=== PATIENT | female | born 1960 | race Caucasian/White ===

== ENCOUNTER 2018-10-28 09:56 | Observation (INO) | payer MEDICARE, OTHER ==
--- NOTE | 2018-10-28 10:26 | CT ---
HEAD CT WITHOUT CONTRAST: History: Stroke alert. Right sided weakness, shaking, and difficulty breathing. Comparison: None. FINDINGS: No parenchymal hemorrhage. No extraaxial hematoma. No midline shift. Basilar cisterns are patent. Brain volume age appropriate. Cortical antonio white matter differentiation is preserved. No evidence of hydrocephalus. White matter hypodensities or chronic small vessel ischemic changes are noted. Calvarium is intact. Adequate aeration of the sinuses and mastoid air cells. IMPRESSION: 1. No acute intracranial process. 2. Chronic small vessel ischemic change in white matter. 3. Results of study discussed with Dr. Christiansen 10-28-18 at 10:05 a.m. POS: [facility]
--- NOTE | 2018-10-28 10:31 | CT ---
CTA Angio Head W WO Con History: [Stroke alert] Comparison: CT brain without contrast same day Findings: CT angiogram of the head and neck performed after the intravenous administration of contras t. 3-D rendering provided. The lung apices demonstrate congestive changes. No apical pneumothorax. Normal cervical spine alignment. Mandibles intact. Vessels: The transverse aorta is unremarkable. The vertebral arteries are codominant. No vertebral st enosis, thrombosis nor aneurysm formation. The right common carotid artery origin is patent. The internal carotid artery is ectatic. No hemodyna mically significant stenosis is present using NASCET criteria. The left common carotid artery is patent. There is large volume calcific plaque of the proximal inter nal carotid artery with approximately 50% stenosis per NASCET criteria. There is a focal ulcerative p laque of the left internal carotid artery at the level of C1 sagittal image 47. The cavernous, petrou s, supraclinoid ICAs are patent. The [place] is patent without stenosis, thrombosis, nor ane urysm formation. Impression: 1. Intact [place] without thrombosis, stenosis, nor aneurysm formation. 2. According to NASCET criteria approximately 50% stenosis proximal left internal carotid artery due to combination of calcific and soft plaque for a length of 1 cm. 3. Small focal atherosclerotic ulcer extracranial left internal carotid artery at the level of C1 sag ittal image 47. Code CR Dr. Christiansen
--- NOTE | 2018-10-28 10:34 | RAD ---
XR Chest 1 View Portable History: [Altered mental status] Comparison: Radiograph 2017 Findings: There is left lower lobe airspace opacity. Right lung peterson appear no pneumothorax. Dense calcifications left carotid bulb. Impression: Left lower lobe opacity concerning for infection with parapneumonic effusion. Follow-up a fter treatment recommended.
[2018-10-28] MEDS ORDERED: Aspirin Chewable 81 MG TAB ONE (10:42)
[2018-10-28 10:46] LABS: #Eosinphils 0.1 thou/uL (0.0-0.7); #Lymphocytes 1.2 thou/uL (1.20-3.40); #Monocytes 0.3 thou/uL (0.11-0.59); #Neutrophils 1.8 thou/uL (1.40-6.50); %Basophils 0.5 % (0.0-1.0); %Monocytes 9.9 % (0.0-10.0); %Neutrophils 52.7 % (42.0-75.0); Hemoglobin 11.2 g/dL (12.0-16.0); Mean Corpuscular HGB CONC 33.6 g/dL (32.0-36.0); Mean Corpuscular Hemoglobin 30.1 pg (27.0-31.0); Mean Corpuscular Volume 89.5 fL (78.0-98.0); Platelet Count 270 thou/uL (130-400); RBC Distribution Width 12.6 % (11.5-14.5); Red Blood Cell (RBC) Count 3.71 mill/uL (4.20-5.40); White Blood Cell (WBC) Count 3.5 thou/uL (4.8-10.8)
[2018-10-28 10:57] LABS: INR-International Normal Ratio 0.9; Prothrombin Time 12.7 SEC (12.0-14.7)
[2018-10-28 10:58] LABS: PTT 25.1 SEC (22.9-36.1)
[2018-10-28 11:08] LABS: Acetaminophen Less than 6.0 mcg/mL (10.0-30.0); Alcohol Less than 10 mg/dL (Less than 10); Salicylate Less than 8.0 mg/dL (15.0-30.0)
[2018-10-28 11:09] LABS: ALT (SGPT) 12 U/L (8-55); AST (SGOT) 12 U/L (5-34); Alkaline Phosphatase 123 U/L (40-150); Anion Gap 11 mmol/L (10-20); BUN (Urea Nitrogen) 12 mg/dL (9.8-20.1); Bilirubin, Total 0.2 mg/dL (0.2-1.2); CK (CPK) 85 U/L (29-168); Calc. Creatinine Clearance 0 mL/min (70-130); Calcium 8.7 mg/dL (7.8-10.44); Carbon Dioxide 33 mmol/L (22-29); Chloride 98 mmol/L (98-107); Estimated GFR-MDRD 68; Globulin 2.3 g/dL (2.4-3.5); Glucose 91 mg/dL (70-105); Potassium 3.2 mmol/L (3.5-5.1); Protein, Total 6.3 g/dL (6.0-8.3); Sodium 139 mmol/L (136-145)
[2018-10-28] MEDS ORDERED: cefTRIAXone\\ROCEPHIN 1 GM VIAL ONE (11:15)
[2018-10-28] MEDS ORDERED: Sodium Chloride 0.9% 100 ML ONE (11:15)
[2018-10-28 11:22] LABS: Bilirubin Negative (Negative); Blood, Urine Negative (Negative); Clarity CLEAR (Clear); Glucose, Urine (Dipstick) Negative (Negative); Leukocyte Negative (Negative); Nitrite Negative (Negative); Protein, Urine (Dipstick) Negative (Neg-Trace); Specific Gravity, Urine 1.037 (1.002-1.036); Urobilinogen 0.2 mg/dL (0.2-1.0); pH, Urine 6.5 (5.0-9.0)
[2018-10-28 11:28] LABS: Medtox Reader # READER 1; Methamphetamine Detected (NotDetected)
[2018-10-28 11:29] LABS: Amphetamine Detected (NotDetected); Barbiturates Screen Not Detected (NotDetected); Benzodiazepine Screen Not Detected (NotDetected); Cocaine Metabolite Screen Not Detected (NotDetected); Medtox Control Line Valid? VALID (VALID); Methadone Not Detected (NotDetected); Opiate Screen Detected (NotDetected); Oxycodone Screen Not Detected (NotDetected); Phencyclidine (PCP) Not Detected (NotDetected); THC/Cannabinoid Screen Not Detected (NotDetected); Tricyclic Screen Detected (NotDetected)
[2018-10-28] MEDS ORDERED: Potassium Chloride 20 MEQ TAB ONE (12:32)
[2018-10-28 13:03] LABS: Actual Bicarbonate (HCO3a) 31.3 mEq/L (22-28); Base Excess (BEa) 5.5 mEq/L (-2.0 to +3.0); CO2 Tension 51.4 mmHg (35.0-45.0); Calcium, Ionized 1.13 mmol/L (1.12-1.30); Carboxyhemoglobin (COHb) 0.8 gm% (0.0-3.0); Hemoglobin (Hb) 12.1 g/dL (12.0-16.0); O2 Tension (PaO2) 72.4 mmHg (> 80.0); Potassium - ABG Lab 3.58 mmol/L (3.70-5.30)
[2018-10-28 13:10] LABS: Puncture Site RRA
[2018-10-28 13:22] LABS: Amphetamine Detected (NotDetected); Benzodiazepine Screen Not Detected (NotDetected); Cocaine Metabolite Screen Not Detected (NotDetected); Medtox Reader # READER 4; Methamphetamine Detected (NotDetected); Opiate Screen Detected (NotDetected); Phencyclidine (PCP) Not Detected (NotDetected); THC/Cannabinoid Screen Not Detected (NotDetected); Tricyclic Screen Detected (NotDetected)
[2018-10-28 13:23] LABS: Barbiturates Screen Not Detected (NotDetected); Medtox Control Line Valid? VALID (VALID); Methadone Not Detected (NotDetected); Oxycodone Screen Not Detected (NotDetected)
[2018-10-28] MEDS ORDERED: Acetaminophen 325 MG TAB PO PRN (14:42)
[2018-10-28] MEDS ORDERED: hydrALAZINE 20 MG/ML VIAL SLOW IVP PRN ×2 (14:42)
[2018-10-28 14:55] LABS: Troponin I Less than 0.010 ng/mL (< 0.028)
[2018-10-28 15:25] LABS: Actual Bicarbonate (HCO3a) 33.2 mEq/L (22-28); Analyzer IN Cardio ER; Base Excess (BEa) 7.9 mEq/L (-2.0 to +3.0); CO2 Tension 49.5 mmHg (35.0-45.0); Calcium, Ionized 1.11 mmol/L (1.12-1.30); Carboxyhemoglobin (COHb) 0.2 gm% (0.0-3.0); Hemoglobin (Hb) 11.9 g/dL (12.0-16.0); O2 Tension (PaO2) 68.2 mmHg (> 80.0); Potassium - ABG Lab 3.62 mmol/L (3.70-5.30); pH, Arterial 7.44 (7.35-7.45)
[2018-10-28 15:28] LABS: ALV-art Gradient 19.655 (0-20); Puncture Site RRA
[2018-10-28] MEDS ORDERED: ISOVUE-370 76%-LOCM 1 ML ONE (16:51)
[2018-10-28 17:19] LABS: Troponin I 0.015 ng/mL (< 0.028)
--- NOTE | 2018-10-28 17:35 | HP ---
PRIMARY CARE PHYSICIAN: Dr. Zamora. CHIEF COMPLAINT: "I could not get up to go to the bathroom." HISTORY OF PRESENT ILLNESS: Ms. Alicia is a pleasant 58-year-old female, who has a history of hypertension and bipolar disorder. First, she said last night, but then she corrected herself and said early this morning, she was trying to get up to go the bathroom, but could not get up. She says her legs were too weak and she was afraid she would fall. Apparently, she says a friend comes over to pick her up and to take her to work and says when I asked her how the friend get in and she says that her doors open and the friend came in and was unable to get her up either and her friend called an ambulance and they arrived and they had to carry her into the ambulance into the hospital. She says during this time, she has had some blurry vision and double vision off and on. She admits that she has been falling off and on. She says that she has been weak in her left leg usually, but this morning she felt generally weak in both legs. When asked if her upper extremities were weak, she says that they were, but no more weak on 1 side or the other. She says that when she was trying to send some texts last night, it looked like gibberish, but she says she did. She does not admit to having any speech problems and she does admit to having some blurred vision and double vision. She was brought to the emergency room for evaluation. There, she had a CT scan of the brain done, which was negative. CT angiogram was done as well, which showed some 50% blockage in the left proximal internal carotid artery and also they did a urine drug screen, which was positive for methamphetamines, barbiturates, opiates, and amphetamines. REVIEW OF SYSTEMS: This was essentially negative except for that mentioned in the history of present illness. PAST MEDICAL HISTORY: Significant for hypertension, bipolar disorder, hypercholesterolemia, she has had previous TIA with right-sided numbness, osteopenia, and osteoarthritis. PAST SURGICAL HISTORY: She had a hysterectomy, arm surgery, the pin was out and had to have this repeat. ALLERGIES: TO DARVON, WHICH SHE SAYS CAUSES HER TO VOMIT BLOOD AND TRAMADOL AND SHE SAYS THIS MAKES HER ITCHY AND SAYS IS A "HALF A MEDICINE." SOCIAL HISTORY: She is . She lives at home with her . She says that she has 10 children. She says that she quit smoking 11 years ago and prior to that smoked a pack and a half a day for 35 years. She says that she was a former alcoholic. She used to drink up to 1 L of vodka a day. She says she quit on May 20, 2018. She says that her son, Josue Mason, is her medical surrogate decision maker. She would like to be a full code, but says she will not accept blood. She says she is a [employer]. FAMILY HISTORY: Significant for heart disease in her father and rheumatoid arthritis. Her mother had, she says 25 TIAs in a row. CURRENT MEDICATIONS: Include; 1. Citalopram 20 mg daily. 2. Losartan 100 mg p.o. daily. 3. Tylenol No. 3 as needed. 4. Melatonin 3 mg daily,. 5. Lyrica 100 mg twice a day. 6. Keflex 500 mg t.i.d. 7. Carbamazepine 200 mg 1 in the morning and 2 in the evening. 8. Nexium 40 mg daily. 9. Tizanidine 4 mg at bedtime. She says she is supposed to be on Norvasc, but she has not had it recently. Also has been out of Lipitor and Keflex. PHYSICAL EXAMINATION: GENERAL: She is a bit drowsy, but arousable. She keeps her eyes closed through most of the exam. She is a bit disheveled in appearance, but she is well-developed. VITAL SIGNS: Her vital signs are blood pressure was elevated at 194/100, heart rate is in the 70s, respiratory rate is 16, and afebrile. HEENT: Pupils are equal, round, and reactive. Extraocular muscles are intact. Her sclerae are anicteric. She did have some lateral some horizontal nystagmus. Throat, there is no erythema. No exudates. NECK: No adenopathy. No bruits. LUNGS: Clear to auscultation. There is no wheezing. No rales. No rhonchi. CARDIOVASCULAR: She had a normal S1 and S2. There is no S3 or S4. No murmurs, clicks, or rubs. ABDOMEN: Obese, it is soft, nontender, and nondistended. Positive for bowel sounds. There is no rebound no guarding no organomegaly. EXTREMITIES: Her extremities she has trace edema. Pedal edema. No joint effusions. NEUROLOGIC: Her cranial nerves 2 through 12 are grossly intact. Her muscle strength is 5/5 in both her upper and lower extremities. She had normal patellar and brachial radialis reflexes. However, it was noted she had some asterixis on exam and again some horizontal nystagmus. SKIN AND INTEGUMENT: She has multiple excoriations on both her upper and lower extremities. LABORATORY DATA: Urine drug screen was positive for opiates as well as tricyclic, methamphetamine, and amphetamine. The white blood cell count was 3.5, hemoglobin 11.2, hematocrit is 33.2, and platelet count is 270. INR 0.9. Sodium 139, potassium 3.2, chloride is 98, CO2 is 33, BUN of 12, creatinine 0.85, glucose is 91. Urinalysis was essentially negative. ASSESSMENT AND PLAN: 1. This is a pleasant 58-year-old female, who presents to the emergency room with generalized weakness and lethargy and trouble getting up. I suspect that this is a metabolic encephalopathy likely due to polysubstance abuse and illicit drug abuse. She did have some asterixis on exam, which would lean more to a global metabolic process than a focal lesion and there was no significant focal deficit on exam. The plan would be to place her in observation. We will repeat the urine screen to assure its validity as the patient denies taking any illicit drugs. We will also check an ABG due to her somnolence. Make sure that she is not hypercapnic as well as an ammonia level given her previous history of alcohol abuse. 2. For transient possible transient ischemic attack, this is less likely. However, we will go ahead and get an MRI just to make sure there is no focal lesion and an echocardiogram to be complete. We will also check a lipid panel as well and treat and manage her blood pressure. She did have an evidence of a focal stenosis in the left internal carotid. However, she says that her weakness was more on the left leg. Therefore, it clinically does not correlate and it being less than 75%. We will hold off on any vascular in her surgical intervention at this time. 3. Hypertension. This is poorly controlled, likely due to noncompliance and we will restart her medications and titrate as needed. Job ID: [id number]
--- NOTE | 2018-10-28 18:29 | MRI ---
MRI OF THE BRAIN WITHOUT CONTRAST: 10/28/18 HISTORY: TIA. FINDINGS: Correlation is made with the CT scan of earlier today. No restricted diffusion is seen. Multiple foci of T2 prolongation in the periventricular white matter are consistent with chronic small vessel ischemic disease. No evidence of infarct, hemorrhage, midli ne shift, or abnormal extra-axial fluid collections is noted. The ventricular size is appropriate and the basilar cisterns patent. The visualized paranasal sinuses and mastoid air cells are well aerated . No tonsillar herniation is seen. IMPRESSION: No evidence of acute intracranial process. POS: [facility]
[2018-10-28 18:37] VITALS: BMI 22.1
[2018-10-28] MEDS: Famotidine 20 MG TAB PO SCH (20:27)
[2018-10-28] MEDS ORDERED: Atorvastatin Calcium 40 MG TAB PO SCH (21:00)
[2018-10-29 05:50] LABS: #Eosinphils 0.1 thou/uL (0.0-0.7); #Lymphocytes 1.4 thou/uL (1.20-3.40); #Monocytes 0.4 thou/uL (0.11-0.59); #Neutrophils 2.2 thou/uL (1.40-6.50); %Basophils 0.8 % (0.0-1.0); %Eosinophils 3.2 % (0.0-10.0); %Lymphocytes 33.2 % (21.0-51.0); %Monocytes 10.4 % (0.0-10.0); %Neutrophils 52.4 % (42.0-75.0); Hemoglobin 12.4 g/dL (12.0-16.0); Mean Corpuscular HGB CONC 33.5 g/dL (32.0-36.0); Mean Corpuscular Hemoglobin 30.1 pg (27.0-31.0); Mean Corpuscular Volume 89.9 fL (78.0-98.0); Platelet Count 290 thou/uL (130-400); RBC Distribution Width 12.6 % (11.5-14.5); Red Blood Cell (RBC) Count 4.11 mill/uL (4.20-5.40); White Blood Cell (WBC) Count 4.1 thou/uL (4.8-10.8)
[2018-10-29 06:00] LABS: Anion Gap 13 mmol/L (10-20); BUN (Urea Nitrogen) 9 mg/dL (9.8-20.1); Calc. Creatinine Clearance 83 mL/min (70-130); Calcium 9.4 mg/dL (7.8-10.44); Carbon Dioxide 31 mmol/L (22-29); Cardiac Risk 3.2 (Less than 4.5); Chloride 97 mmol/L (98-107); Cholesterol 314 mg/dl (< 200 Desired); Estimated GFR-MDRD 84; Glucose 107 mg/dL (70-105); HDL Cholesterol 99 mg/dL (>60 Neg Risk); LDL Cholesterol, Calculated 181 mg/dL; Potassium 3.8 mmol/L (3.5-5.1); Sodium 137 mmol/L (136-145); Triglycerides 171 mg/dL (Less than 150)
[2018-10-29] MEDS ORDERED: Aspirin 325 mg Enteric Coated Tablet PO SCH (09:00)
[2018-10-29] MEDS ORDERED: Enoxaparin Sodium 40 MG/0.4 ML SYRINGE SC SCH (09:00)
[2018-10-29] MEDS: Famotidine 20 MG TAB PO SCH (09:36)
[2018-10-29] MEDS ORDERED: Amlodipine 5 MG TAB PO SCH (14:45)
[2018-10-29] MEDS ORDERED: Citalopram 20 MG TAB PO SCH (14:45)
[2018-10-29 16:02] VITALS: BP 169/78; TEMP 98.1
--- NOTE | 2018-10-29 16:05 | CT ---
CTA Angio Head W WO Con History: [Stroke alert] Comparison: CT brain without contrast same day Findings: CT angiogram of the head and neck performed after the intravenous administration of contras t. 3-D rendering provided. The lung apices demonstrate congestive changes. No apical pneumothorax. Normal cervical spine alignment. Mandibles intact. Vessels: The transverse aorta is unremarkable. The vertebral arteries are codominant. No vertebral st enosis, thrombosis nor aneurysm formation. The right common carotid artery origin is patent. The internal carotid artery is ectatic. No hemodyna mically significant stenosis is present using NASCET criteria. The left common carotid artery is patent. There is large volume calcific plaque of the proximal inter nal carotid artery with approximately 50% stenosis per NASCET criteria. There is a focal ulcerative p laque of the left internal carotid artery at the level of C1 sagittal image 47. The cavernous, petrou s, supraclinoid ICAs are patent. The [place] is patent without stenosis, thrombosis, nor ane urysm formation. Impression: 1. Intact [place] without thrombosis, stenosis, nor aneurysm formation. 2. According to NASCET criteria approximately 50% stenosis proximal left internal carotid artery due to combination of calcific and soft plaque for a length of 1 cm. 3. Small focal atherosclerotic ulcer extracranial left internal carotid artery at the level of C1 sag ittal image 47. Code CR Dr. Christiansen Transcribed Date/Time: 10/29/2018 4:02 PM
--- NOTE | 2018-10-30 04:28 | DIS ---
DATE OF ADMISSION: 10/28/2018 DATE OF DISCHARGE: 10/29/2018 ALLERGIES: GABAPENTIN, PROPOXYPHENE, AND TRAMADOL. CHIEF COMPLAINT: Generalized weakness, slurred speech. FINAL DIAGNOSES: 1. Toxic metabolic encephalopathy secondary to polysubstance abuse, resolved. 2. Polysubstance abuse including methamphetamine use. 3. Carotid artery stenosis, with a 50% stenosis of the left proximal internal carotid artery, diagnosed in this hospitalization. 4. Hypertension. 5. Bipolar disorder. 6. Prior transient ischemic attack. 7. Enlarged ascending aorta of 3.6 cm. PROCEDURE PERFORMED: None. LABORATORY RESULTS: White blood cell count 4.1, hemoglobin 12.4, hemoglobin 37, platelet count 290. PT 12.7, INR 0.9, APTT 25.1. Blood gas showed blood pH of 7.44 with a PO2 of 68, a pCO2 of 49.5. Sodium 137, potassium 3.8, chloride 98, carbon dioxide 31, BUN 9, creatinine 0.71, GFR 84, glucose 107. Liver function enzymes all within normal limits. Troponin negative x3. Triglycerides 171, cholesterol 314, LDL 181, HDL 99. Urinalysis was negative. Toxicology screen of urine was positive for opiates, tricyclics, and both amphetamines and methamphetamines. IMAGING RESULTS: Brain CT, no acute intracranial process, chronic small-vessel ischemic change in the white matter. CT angiography of the neck and knik of [place] showed intact knik of [place] without thrombosis, stenosis, or aneurysm formation. Approximate 50% stenosis of proximal left internal carotid artery due to combination of calcified and soft plaque for length of 1 cm, small focal atherosclerotic ulcer extracranial left internal carotid at the area of level of C1. Brain MRI, no evidence of acute intracranial process. CONSULTATIONS: None. VITAL SIGNS: Blood pressure 164/79, pulse is 91, temp is 98.1, O2 saturation is 95% on room air, respirations are 16. HOSPITAL COURSE: The patient is a pleasant 58-year-old female with past medical history significant for prior TIA, hypertension, bipolar disorder, previous alcohol abuse, who presented to the ER with complaints of generalized weakness and not being able to get up to go to the bathroom. Her symptoms began the day before yesterday when she said she was trying to get up to go to the bathroom but could not get up. She states that her legs were both very weak. She thought she would fall. She called a friend to come and pick her up and help her to get up. Her friend did come over, was unable to get her up either. Apparently, there was some gibberish and slurred speech when the friend arrived to her house. She also had some associated blurred vision. Because of her symptoms, she was brought to the ER for further workup and treatment. Workup was most notable on arrival for positive urine tox screen, which showed methamphetamines and amphetamines on board. Initially, the patient adamantly denied this and tox screen was repeated, which revealed the same. Upon my interview, the patient did admit to drug use prior to the onset of her symptoms. Since her arrival at the hospital, her workup has largely been negative. Her MRI was negative for any kind of acute stroke. She has ambulated the batista with ease. She has no further weakness. She has no focal weaknesses at the time. She has no nausea or vomiting. She is tolerating her diet well. She has no chest pain or shortness of breath. Her presenting symptoms have resolved. PHYSICAL EXAMINATION: GENERAL: The patient is a female who does appear older than her stated age. HEENT: Atraumatic, normocephalic. Poor dentition. NECK: Supple. No lymphadenopathy. No audible carotid bruits. RESPIRATORY: Regular respiratory rate and pattern. Clear to auscultation bilaterally. No rhonchi or wheezes. CV: S1 and S2. Regular rate and rhythm. No appreciable murmurs, rubs, or gallops. GI: Soft, nontender. Normal bowel sounds. PERIPHERAL VASCULAR: No lower extremity pitting edema. +2 DP pulses bilaterally. MUSCULOSKELETAL: No joint effusion or swelling. NEUROLOGIC: The patient is awake and alert. Cranial nerves 2 through 12 are grossly intact. The patient is nonfocal. SKIN: The patient does have numerous excoriations present on her arms. CONDITION AT DISCHARGE: Stable. DISCHARGE MEDICATIONS: The patient will continue her home medications which include, 1. Acetaminophen with codeine 300/30 tablets one tablet p.o. b.i.d. 2. Amlodipine 5 mg tablet one tablet daily. 3. Carbamazepine 200 mg tablet one tablet p.o. daily. 4. Cephalexin 500 mg tablet one tablet p.o. q.8 hours. 5. Celexa 20 mg tablet one tablet daily. 6. Esomeprazole 20 mg tablet one tablet daily. 7. Losartan 100 mg tablet one tablet daily. 8. Lyrica capsule 100 mg p.o. b.i.d. 9. Tizanidine 4 mg daily. New medications will include aspirin 81 mg daily along with Lipitor 40 mg tablet p.o. at bedtime. DISCHARGE DISPOSITION: Home. PLAN: The patient has admitted to methamphetamine abuse. I have counseled the patient heavily regarding this. I have also explained to her all of the findings of her studies including nonocclusive carotid artery stenosis and ascending aortic aneurysm of 3.6 cm. I have encouraged the patient to continue aggressive risk factor modification and watch her blood pressure. I have counseled her heavily on cessation of drugs and alcohol. She will follow up with her primary care physician. She will also be following up with a forestry and wildlife manager closer to where she lives in [place]. All questions were answered to the patient's satisfaction. Job ID: [id number]
[2018-10-30] MEDS ORDERED: Amlodipine 5 MG TAB PO SCH (09:00)
[2018-10-30] MEDS ORDERED: Citalopram 20 MG TAB PO SCH (14:31)
--- NOTE | 2018-11-01 11:55 | EKG ---
Test Reason : Blood Pressure : / mmHG Vent. Rate : 088 BPM Atrial Rate : 088 BPM P-R Int : 210 ms QRS Dur : 112 ms QT Int : 394 ms P-R-T Axes : 042 -14 111 degrees QTc Int : 476 ms Sinus rhythm with 1st degree A-V block Incomplete left bundle branch block Left ventricular hypertrophy with repolarization abnormality Abnormal ECG Confirmed by ERIKA Garcia, OCTAVIO ([id number]), research editor ROYAL ROSS ([id number]) on 11/01/2018 11:54:45 AM Referred By: ERIKA Confirmed By:OCTAVIO JAMES M.D.
== END 2018-10-29 16:35 | disposition home or self-care (01) ==
LOC: ERS 09:56 → ERHOLD 11:58 → 2SE 17:36
PROVIDERS: ADMIT Internal Medicine; ATTEND Internal Medicine
DX: G92 Toxic encephalopathy (principal); I65.22 Occlusion and stenosis of left carotid artery; F15.10 Other stimulant abuse, uncomplicated; I10 Essential (primary) hypertension; F31.9 Bipolar disorder, unspecified; E78.00 Pure hypercholesterolemia, unspecified; I69.998 Other sequelae following unspecified cerebrovascular disease; M85.80 Other specified disorders of bone density and structure, unspecified site; M19.90 Unspecified osteoarthritis, unspecified site; Z90.710 Acquired absence of both cervix and uterus; Z88.5 Allergy status to narcotic agent; Z87.891 Personal history of nicotine dependence; Z88.8 Allergy status to other drugs, medicaments and biological substances; Z79.82 Long term (current) use of aspirin; Z79.2 Long term (current) use of antibiotics; Z79.899 Other long term (current) drug therapy; Z98.890 Other specified postprocedural states
CPT/HCPCS: 51701; 70450; 70496; 70498; 70551; 71045; 80048; 80053; 80061; 80306; 80307; 81003; 82140; 82550; 82805; 82962; 83605; 84484 ×2; 85025 ×2; 85610; 85730; 87040; 87086; 93005; 93306; 94760; 96365; 96372; 97139 ×4; 99291; G0378 ×2; 36415; 36416; A4353; J0696; J1650; J7050; Q9966

== ENCOUNTER 2020-09-05 12:57 | Emergency (ER) | payer MEDICARE, SELFPAY ==
[2020-09-05 15:37] LABS: Amphetamine Not Detected (NotDetected); Barbiturates Screen Not Detected (NotDetected); Benzodiazepine Screen Not Detected (NotDetected); Cocaine Metabolite Screen Not Detected (NotDetected); Medtox Control Line Valid? VALID (VALID); Medtox Reader # READER 1; Methadone Not Detected (NotDetected); Methamphetamine Detected (NotDetected); Opiate Screen Not Detected (NotDetected); Oxycodone Screen Not Detected (NotDetected); Phencyclidine (PCP) Not Detected (NotDetected); THC/Cannabinoid Screen Not Detected (NotDetected); Tricyclic Screen Not Detected (NotDetected)
[2020-09-05 18:33] LABS: #Eosinphils 0.1 thou/uL (0.0-0.7); #Lymphocytes 1.7 thou/uL (1.20-3.40); #Monocytes 0.4 thou/uL (0.11-0.59); #Neutrophils 2.4 thou/uL (1.40-6.50); %Basophils 0.5 % (0.0-1.0); %Eosinophils 2.1 % (0.0-10.0); %Lymphocytes 35.9 % (21.0-51.0); %Monocytes 8.3 % (0.0-10.0); %Neutrophils 53.1 % (42.0-75.0); Hemoglobin 11.9 g/dL (12.0-16.0); Mean Corpuscular HGB CONC 34.8 g/dL (32.0-36.0); Mean Corpuscular Hemoglobin 29.7 pg (27.0-31.0); Mean Corpuscular Volume 85.3 fL (78.0-98.0); Mean Platelet Volume 5.7 fL (7.4-10.4); Platelet Count 274 thou/uL (130-400); RBC Distribution Width 11.7 % (11.5-14.5); Red Blood Cell (RBC) Count 3.99 mill/uL (4.20-5.40); White Blood Cell (WBC) Count 4.6 thou/uL (4.8-10.8)
[2020-09-05 18:50] LABS: ALT (SGPT) 9 U/L (8-55); AST (SGOT) 11 U/L (5-34); Acetaminophen Less than 6.0 mcg/mL (10.0-30.0); Albumin 3.5 g/dL (3.4-4.8); Alcohol Less than 10 mg/dL (Less than 10); Alkaline Phosphatase 90 U/L (40-110); Anion Gap 12 mmol/L (10-20); BUN (Urea Nitrogen) 16 mg/dL (9.8-20.1); Bilirubin, Total 0.2 mg/dL (0.2-1.2); Calc. Creatinine Clearance 0 mL/min (70-130); Calcium 8.2 mg/dL (7.8-10.44); Carbon Dioxide 31 mmol/L (23-31); Chloride 100 mmol/L (98-107); Globulin 2.2 g/dL (2.4-3.5); Glucose 144 mg/dL (80-115); Potassium 3.3 mmol/L (3.5-5.1); Protein, Total 5.7 g/dL (5.8-8.1); Salicylate Less than 8.0 mg/dL (15.0-30.0); Sodium 140 mmol/L (136-145)
[2020-09-05] MEDS ORDERED: Potassium Chloride 20 MEQ TAB ONE (19:49)
[2020-09-06] MEDS ORDERED: carBAMazepine 200 MG TAB PO SCH (11:15)
[2020-09-06] MEDS ORDERED: Citalopram 10 MG TAB PO SCH (11:15)
[2020-09-06] MEDS ORDERED: Losartan 25 MG TAB PO SCH (11:15)
[2020-09-06] MEDS ORDERED: Pregabalin 50 MG CAP PO SCH (11:15)
[2020-09-06] MEDS ORDERED: Amlodipine 5 MG TAB ONE (12:02)
[2020-09-07] MEDS ORDERED: Losartan 25 MG TAB PO SCH (14:15)
[2020-09-07] MEDS ORDERED: carBAMazepine 200 MG TAB PO SCH (14:15)
[2020-09-07] MEDS ORDERED: Citalopram 10 MG TAB PO SCH (14:15)
[2020-09-07] MEDS ORDERED: Amlodipine 10 MG TAB PO SCH (14:15)
[2020-09-07] MEDS ORDERED: Pregabalin 50 MG CAP PO SCH (14:15)
[2020-09-08] MEDS ORDERED: Losartan 25 MG TAB PO SCH (09:00)
[2020-09-08] MEDS ORDERED: carBAMazepine 200 MG TAB PO SCH (09:00)
[2020-09-08] MEDS ORDERED: Amlodipine 10 MG TAB PO SCH (09:00)
[2020-09-08] MEDS ORDERED: Pregabalin 50 MG CAP PO SCH (09:00)
[2020-09-08] MEDS ORDERED: Citalopram 20 MG TAB PO SCH (09:00)
[2020-09-08] MEDS ORDERED: tiZANidine HCl 4 MG TAB PO PRN (09:42)
--- NOTE | 2020-09-10 15:54 | EKG ---
Test Reason : Blood Pressure : / mmHG Vent. Rate : 086 BPM Atrial Rate : 086 BPM P-R Int : 150 ms QRS Dur : 086 ms QT Int : 354 ms P-R-T Axes : 056 026 104 degrees QTc Int : 423 ms Normal sinus rhythm Moderate voltage criteria for LVH, may be normal variant Anteroseptal infarct , age undetermined Abnormal ECG Similar to 09/05/2020 Confirmed by CIRILO NEWMAN ([id number]), editor book ROYAL ROSS ([id number]) on 09/10/2020 3:54:09 PM Referred By: Confirmed By:CIRILO NEWMAN
--- NOTE | 2020-09-10 17:32 | EKG ---
Test Reason : Blood Pressure : / mmHG Vent. Rate : 076 BPM Atrial Rate : 076 BPM P-R Int : 166 ms QRS Dur : 076 ms QT Int : 366 ms P-R-T Axes : 033 -06 187 degrees QTc Int : 411 ms Normal sinus rhythm Possible Left atrial enlargement Left ventricular hypertrophy Anteroseptal infarct , age undetermined Abnormal ECG Confirmed by BENJI LESTER, ROCCO ([id number]), writer editor ROYAL ROSS ([id number]) on 09/10/2020 5:32:28 PM Referred By: Confirmed By:ROCCO LEBLANC MD
--- NOTE | 2020-09-10 17:33 | EKG ---
Test Reason : Blood Pressure : / mmHG Vent. Rate : 077 BPM Atrial Rate : 077 BPM P-R Int : 162 ms QRS Dur : 088 ms QT Int : 414 ms P-R-T Axes : 056 017 216 degrees QTc Int : 468 ms Normal sinus rhythm Left ventricular hypertrophy with repolarization abnormality Cannot rule out Septal infarct , age undetermined Abnormal ECG No change from previous ECG Confirmed by BENJI LESTER, ROCCO ([id number]), newspaper copy editor ROYAL ROSS ([id number]) on 09/10/2020 5:33:00 PM Referred By: Confirmed By:ROCCO LEBLANC MD
== END 2020-09-08 14:00 | disposition home or self-care (01) ==
LOC: ERS 12:57
DX: F15.10 Other stimulant abuse, uncomplicated (principal); R45.851 Suicidal ideations; I10 Essential (primary) hypertension; F41.9 Anxiety disorder, unspecified; Z79.899 Other long term (current) drug therapy
CPT/HCPCS: 36415; 80053; 80306; 80307; 84443; 84484; 85025; 93005

== ENCOUNTER 2021-06-26 17:01 | Observation (INO) | payer MEDICARE, SELFPAY ==
[2021-06-26 17:38] LABS: #Basophils 0.1 thou/uL (0.0-0.2); #Eosinphils 0.1 thou/uL (0.0-0.7); #Lymphocytes 1.2 thou/uL (1.20-3.40); #Monocytes 0.5 thou/uL (0.11-0.59); #Neutrophils 2.9 thou/uL (1.40-6.50); %Basophils 1.3 % (0.0-1.0); %Eosinophils 1.5 % (0.0-10.0); %Lymphocytes 25.6 % (21.0-51.0); %Monocytes 10.2 % (0.0-10.0); %Neutrophils 61.4 % (42.0-75.0); Hemoglobin 12.9 g/dL (12.0-16.0); Mean Corpuscular HGB CONC 33.8 g/dL (32.0-36.0); Mean Corpuscular Hemoglobin 29.4 pg (27.0-31.0); Mean Platelet Volume 6.5 fL (7.4-10.4); Platelet Count 260 thou/uL (130-400); RBC Distribution Width 12.3 % (11.5-14.5); Red Blood Cell (RBC) Count 4.38 mill/uL (4.20-5.40); White Blood Cell (WBC) Count 4.6 thou/uL (4.8-10.8)
[2021-06-26] MEDS ORDERED: Aspirin Chewable 81 MG TAB ONE (17:46)
[2021-06-26 19:26] LABS: ALT (SGPT) 13 U/L (8-55); AST (SGOT) 24 U/L (5-34); Albumin 4.3 g/dL (3.4-4.8); Alkaline Phosphatase 101 U/L (40-110); Anion Gap 16 mmol/L (10-20); BUN (Urea Nitrogen) 20 mg/dL (9.8-20.1); Bilirubin, Total 0.2 mg/dL (0.2-1.2); Calc. Creatinine Clearance 0 mL/min (70-130); Calcium 8.8 mg/dL (7.8-10.44); Carbon Dioxide 26 mmol/L (23-31); Chloride 98 mmol/L (98-107); Globulin 2.9 g/dL (2.4-3.5); Glucose 77 mg/dL (80-115); Potassium 4.1 mmol/L (3.5-5.1); Protein, Total 7.2 g/dL (5.8-8.1); Sodium 136 mmol/L (136-145)
[2021-06-26] MEDS ORDERED: Nitroglycerin 2% Ointment 1 INCH/1 GM Packet ONE ×3 (20:06→20:21)
[2021-06-26] MEDS ORDERED: hydrALAZINE 20 MG/ML VIAL ONE ×2 (20:07→20:53)
[2021-06-26] MEDS ORDERED: HYDROcodone/Acetaminophen 5/325 mg Tablet PO PRN (21:08)
[2021-06-26] MEDS ORDERED: Ondansetron PF 4 MG/2 ML Vial IVP PRN (21:08)
[2021-06-26] MEDS ORDERED: Zolpidem Tartrate 5 MG TAB PO PRN (21:08)
[2021-06-26] MEDS ORDERED: hydrALAZINE 20 MG/ML VIAL SLOW IVP PRN (21:10)
[2021-06-26] MEDS ORDERED: diphenhydrAMINE 50 MG/ML VIAL IVP SCH (21:15)
[2021-06-26] MEDS ORDERED: hydrALAZINE 25 MG TAB PO SCH (21:30)
[2021-06-26 21:36] LABS: Troponin I Less than 0.010 ng/mL (< 0.028)
[2021-06-26] MEDS: Nitroglycerin 2% Ointment 1 INCH/1 GM Packet TOP SCH (21:51)
[2021-06-26] MEDS: Carvedilol 6.25 MG TAB PO SCH ×2 (22:02→22:13)
[2021-06-26] MEDS: Amlodipine 10 MG TAB PO SCH ×2 (22:02→22:13)
[2021-06-26 22:32] VITALS: BMI 17.4
[2021-06-27 01:18] LABS: Troponin I Less than 0.010 ng/mL (< 0.028)
[2021-06-27 05:21] LABS: Hemoglobin 12.2 g/dL (12.0-16.0); Mean Corpuscular HGB CONC 32.5 g/dL (32.0-36.0); Mean Corpuscular Hemoglobin 28.7 pg (27.0-31.0); Mean Corpuscular Volume 88.3 fL (78.0-98.0); Platelet Count 250 thou/uL (130-400); RBC Distribution Width 12.5 % (11.5-14.5); Red Blood Cell (RBC) Count 4.24 mill/uL (4.20-5.40); White Blood Cell (WBC) Count 4.8 thou/uL (4.8-10.8)
[2021-06-27 05:38] LABS: Anion Gap 11 mmol/L (10-20); BUN (Urea Nitrogen) 22 mg/dL (9.8-20.1); Calc. Creatinine Clearance 57 mL/min (70-130); Calcium 9.4 mg/dL (7.8-10.44); Carbon Dioxide 29 mmol/L (23-31); Chloride 100 mmol/L (98-107); Glucose 110 mg/dL (80-115); Potassium 4.1 mmol/L (3.5-5.1); Sodium 136 mmol/L (136-145)
[2021-06-27 05:46] LABS: Band 6 % (5-11); Lymphocytes 31 % (21-51); MDiff Complete? YES; Monocytes 8 % (0-10); Neutrophil 52 % (42-75); Reactive Lymphocytes 1 % (0-10)
[2021-06-27] MEDS: Nitroglycerin 2% Ointment 1 INCH/1 GM Packet TOP SCH ×2 (05:59→15:04)
[2021-06-27] MEDS ORDERED: Carvedilol 6.25 MG TAB PO SCH (08:00)
[2021-06-27] MEDS ORDERED: Amlodipine 10 MG TAB PO SCH (09:00)
[2021-06-27] MEDS ORDERED: Enoxaparin Sodium 40 MG/0.4 ML SYRINGE SC SCH (09:00)
[2021-06-27] MEDS ORDERED: Aspirin Chewable 81 MG TAB PO SCH (09:00)
[2021-06-27] MEDS ORDERED: Famotidine 20 MG TAB PO SCH (09:00)
[2021-06-27] MEDS ORDERED: Citalopram 20 MG TAB PO SCH (09:00)
[2021-06-27] MEDS ORDERED: hydrALAZINE 25 MG TAB PO SCH (09:00)
[2021-06-27] MEDS ORDERED: FLU VACC QS2021-22(6MOS UP)/PF 60 MCG/0.5 ML SYRINGE IM ONE (09:00)
[2021-06-27 11:07] LABS: SARS-CoV-2 PCR by NAA Not Detected (NotDetected)
[2021-06-27 11:46] VITALS: BP 128/64; TEMP 99
== END 2021-06-27 15:56 | disposition home or self-care (01) ==
LOC: ERS 17:01 → 2SW 20:11
PROVIDERS: ADMIT Student in an Organized Health Care Education/Training Program; ATTEND Internal Medicine
DX: I16.0 Hypertensive urgency (principal); R07.89 Other chest pain; I10 Essential (primary) hypertension; R42 Dizziness and giddiness; R20.0 Anesthesia of skin; R53.1 Weakness; Z20.822 Contact with and (suspected) exposure to COVID-19; Z79.899 Other long term (current) drug therapy; Z87.891 Personal history of nicotine dependence; Z88.5 Allergy status to narcotic agent; Z88.8 Allergy status to other drugs, medicaments and biological substances
CPT/HCPCS: 70551; 71045; 80048; 80053; 82962; 84484 ×3; 85007; 85025; 85027; 93005; 94760; 96372; 96374; 96375; G0378 ×2; U0003; U0005; 36415; 36416; 96376; J0360; J1200; J1650; J2405

== ENCOUNTER 2021-11-14 20:40 | Emergency (ER) | payer OTHER, MEDICARE ==
[2021-11-14] MEDS ORDERED: Ketorolac Tromethamine 30 MG/ML VIAL ONE (21:14)
== END 2021-11-14 22:15 | disposition home or self-care (01) ==
LOC: ERS 20:40
DX: S90.32XA Contusion of left foot, initial encounter (principal); I10 Essential (primary) hypertension; Z86.73 Personal history of transient ischemic attack (TIA), and cerebral infarction without residual deficits; W20.8XXA Other cause of strike by thrown, projected or falling object, initial encounter
CPT/HCPCS: 96372; J1885

== ENCOUNTER 2022-01-01 15:38 | Emergency (ER) | payer OTHER, MEDICARE ==
[2022-01-01 16:11] LABS: #Monocytes 0.7 thou/uL (0.11-0.59); #Neutrophils 6.3 thou/uL (1.40-6.50); %Basophils 0.3 % (0.0-1.0); %Eosinophils 0.5 % (0.0-10.0); %Lymphocytes 12.1 % (21.0-51.0); %Monocytes 8.5 % (0.0-10.0); %Neutrophils 78.7 % (42.0-75.0); Hemoglobin 14.4 g/dL (12.0-16.0); Mean Corpuscular HGB CONC 34.1 g/dL (32.0-36.0); Mean Corpuscular Hemoglobin 29.3 pg (27.0-31.0); Platelet Count 285 thou/uL (130-400); RBC Distribution Width 12.6 % (11.5-14.5)
[2022-01-01 16:33] LABS: ALT (SGPT) 25 U/L (8-55); AST (SGOT) 21 U/L (5-34); Albumin 4.9 g/dL (3.4-4.8); Alkaline Phosphatase 99 U/L (40-110); Anion Gap 18 mmol/L (10-20); BUN (Urea Nitrogen) 30 mg/dL (9.8-20.1); Bilirubin, Total 0.6 mg/dL (0.2-1.2); Calc. Creatinine Clearance 0 mL/min (70-130); Carbon Dioxide 28 mmol/L (23-31); Chloride 94 mmol/L (98-107); Globulin 3.1 g/dL (2.4-3.5); Glucose 110 mg/dL (80-115); Sodium 136 mmol/L (136-145)
== END 2022-01-01 19:50 | disposition home or self-care (01) ==
LOC: ERS 15:38
DX: E86.0 Dehydration (principal); I10 Essential (primary) hypertension; Z86.73 Personal history of transient ischemic attack (TIA), and cerebral infarction without residual deficits; Z79.82 Long term (current) use of aspirin; Z79.899 Other long term (current) drug therapy
CPT/HCPCS: 71045; 80053; 84484; 85025; 93005; 96360; 96361

== ENCOUNTER 2022-02-21 14:17 | Outpatient (CLI) | payer OTHER | END 2022-02-21 14:18 | disposition home or self-care (01) | LOC: BICRAD 14:17 | PROVIDERS: ATTEND Internal Medicine Rheumatology | DX: M54.2 Cervicalgia (principal); M47.812 Spondylosis without myelopathy or radiculopathy, cervical region | CPT/HCPCS: 72052 ==

== ENCOUNTER 2023-02-28 08:28 | Outpatient (CLI) | payer OTHER | END 2023-02-28 08:29 | disposition home or self-care (01) | LOC: BICMRI 08:28 | PROVIDERS: ATTEND Internal Medicine | DX: M54.50 Low back pain, unspecified (principal); M51.36 Other intervertebral disc degeneration, lumbar region; M51.37 Other intervertebral disc degeneration, lumbosacral region; M48.061 Spinal stenosis, lumbar region without neurogenic claudication | CPT/HCPCS: 72148 ==

== ENCOUNTER 2023-05-21 17:34 | Emergency (ER) | payer OTHER ==
[2023-05-21] MEDS ORDERED: Ketorolac Tromethamine 30 MG/ML VIAL ONE (18:10)
[2023-05-21] MEDS ORDERED: Ondansetron PF 4 MG/2 ML Vial ONE (18:10)
[2023-05-21 18:15] LABS: #Monocytes 0.9 thou/uL (0.11-0.59); #Neutrophils 6.4 thou/uL (1.40-6.50); %Basophils 0.4 % (0.0-1.0); %Eosinophils 0.4 % (0.0-10.0); %Lymphocytes 11.7 % (21.0-51.0); %Monocytes 10.6 % (0.0-10.0); %Neutrophils 76.7 % (42.0-75.0); Hematocrit 35.6 % (36.0-47.0); Hemoglobin 12.3 g/dL (12.0-16.0); Mean Corpuscular HGB CONC 34.6 g/dL (32.0-36.0); Mean Platelet Volume 9.1 fL (7.4-10.4); Platelet Count 200 10x3/uL (130-400); RBC Distribution Width 13.1 % (11.5-14.5); Red Blood Cell (RBC) Count 4.24 mill/uL (4.20-5.40); White Blood Cell (WBC) Count 8.3 10x3/uL (4.8-10.8)
[2023-05-21] MEDS ORDERED: Lidocaine 2% Viscous Solution 10 ML, Aluminum & Magnesium Hydroxide 30 ML SSW SCH (18:15)
[2023-05-21 18:38] LABS: ALT (SGPT) 18 U/L (8-55); AST (SGOT) 25 U/L (5-34); Albumin 4.7 g/dL (3.4-4.8); Alkaline Phosphatase 82 U/L (40-110); Anion Gap 15 mmol/L (10-20); BUN (Urea Nitrogen) 21 mg/dL (9.8-20.1); Bilirubin, Total 0.3 mg/dL (0.2-1.2); Calc. Creatinine Clearance 0 mL/min (70-130); Calcium 8.9 mg/dL (7.8-10.44); Carbon Dioxide 27 mmol/L (23-31); Chloride 91 mmol/L (98-107); Estimated GFR 39; Globulin 2.4 g/dL (2.4-3.5); Glucose 101 mg/dL (80-115); Lipase 32 U/L (8-78); Potassium 3.1 mmol/L (3.5-5.1); Protein, Total 7.1 g/dL (5.8-8.1); Sodium 130 mmol/L (136-145)
[2023-05-21 18:42] LABS: Troponin I 0.015 ng/mL (< 0.028)
[2023-05-21] MEDS ORDERED: Potassium Chloride 20 MEQ TAB ONE (20:06)
== END 2023-05-21 23:22 | disposition home or self-care (01) ==
LOC: ERS 17:34
DX: K29.70 Gastritis, unspecified, without bleeding (principal); E78.5 Hyperlipidemia, unspecified; I10 Essential (primary) hypertension
CPT/HCPCS: 74177; 80053; 83690; 84484; 85025; 93005; 96374; 96375; J1885; J2405

== ENCOUNTER 2023-06-19 13:25 | Emergency (ER) | payer OTHER ==
[2023-06-19 14:28] LABS: #Monocytes 0.5 thou/uL (0.11-0.59); %Basophils 0.9 % (0.0-1.0); %Eosinophils 0.9 % (0.0-10.0); %Lymphocytes 20.2 % (21.0-51.0); %Monocytes 15.3 % (0.0-10.0); %Neutrophils 62.7 % (42.0-75.0); Hematocrit 33.2 % (36.0-47.0); Hemoglobin 11.6 g/dL (12.0-16.0); Mean Corpuscular HGB CONC 34.9 g/dL (32.0-36.0); Mean Corpuscular Hemoglobin 29.4 pg (27.0-31.0); Mean Corpuscular Volume 84.1 fl (78.0-98.0); Mean Platelet Volume 9.1 fL (7.4-10.4); Platelet Count 173 10x3/uL (130-400); RBC Distribution Width 12.7 % (11.5-14.5); Red Blood Cell (RBC) Count 3.95 mill/uL (4.20-5.40); White Blood Cell (WBC) Count 3.3 10x3/uL (4.8-10.8)
[2023-06-19 14:47] LABS: ALT (SGPT) 12 U/L (8-55); AST (SGOT) 15 U/L (5-34); Albumin 4.2 g/dL (3.4-4.8); Alkaline Phosphatase 81 U/L (40-110); Anion Gap 11 mmol/L (10-20); BUN (Urea Nitrogen) 9 mg/dL (9.8-20.1); Bilirubin, Total 0.3 mg/dL (0.2-1.2); Calc. Creatinine Clearance 0 mL/min (70-130); Calcium 8.9 mg/dL (7.8-10.44); Carbon Dioxide 33 mmol/L (23-31); Chloride 91 mmol/L (98-107); Estimated GFR 74; Globulin 2.2 g/dL (2.4-3.5); Glucose 103 mg/dL (80-115); Potassium 3.9 mmol/L (3.5-5.1); Protein, Total 6.4 g/dL (5.8-8.1); Sodium 131 mmol/L (136-145)
[2023-06-19] MEDS ORDERED: Meclizine HCl 25 MG TAB ONE (14:47)
[2023-06-19 16:40] LABS: Bacteria/HPF 1+ HPF (None Seen); Bilirubin Negative (Negative); Blood, Urine Negative (Negative); CAUTI Indications for Culture Pelvic or flank pain; Clarity Clear (Clear); Glucose, Urine (Dipstick) Normal (Negative); Ketone, Urine Negative (Negative); Leukocyte 250 Leu/uL (Negative); Nitrite Negative (Negative); Protein, Urine (Dipstick) Negative (Neg-Trace); RBC/HPF 0-3 HPF (0-3); Specific Gravity, Urine 1.008 (1.002-1.036); Squamous Epithelial 0-3 HPF (0-3); Urobilinogen Normal mg/dL (Less than 2); WBC/HPF 0-3 HPF (0-3)
[2023-06-19 16:42] LABS: Urine Culture Reflex No No
[2023-06-19 16:55] LABS: Troponin I 0.017 ng/mL (< 0.028)
== END 2023-06-19 19:24 | disposition home or self-care (01) ==
LOC: ERS 13:25
DX: R42 Dizziness and giddiness (principal); I10 Essential (primary) hypertension
CPT/HCPCS: 36415; 71045; 80053; 81001; 84484; 85025; 93005; 96360

== ENCOUNTER 2023-09-02 15:08 | Emergency (ER) | payer MEDICARE, OTHER | END 2023-09-02 23:52 | disposition left against medical advice (07) | LOC: ERS 15:08 | DX: S00.93XA Contusion of unspecified part of head, initial encounter (principal); M25.561 Pain in right knee; I10 Essential (primary) hypertension; W01.10XA Fall on same level from slipping, tripping and stumbling with subsequent striking against unspecified object, initial encounter; Z86.73 Personal history of transient ischemic attack (TIA), and cerebral infarction without residual deficits ==